=== PATIENT | male | born 1970 | race Caucasian/White ===

== ENCOUNTER 2021-06-24 09:47 | Outpatient (CLI) | payer OTHER, SELFPAY | END 2021-06-24 23:59 | disposition home or self-care (01) | LOC: LABSPEC 09:49 | PROVIDERS: Referring Provider Surgery; Visit Provider Surgery | DX: L72.3 Sebaceous cyst (principal); L08.9 Local infection of the skin and subcutaneous tissue, unspecified | CPT/HCPCS: 87070; 87075; 87077; 87205 ==

== ENCOUNTER 2021-07-31 10:53 | Day surgery (SDC) | payer OTHER, SELFPAY ==
[2021-07-31 11:18] VITALS: BP 168/87; PULSE 103; RESP 16; TEMP 37.1; O2SAT 100; BMI 27.7
[2021-07-31] MEDS: Lactated Ringers 1,000 ML 15 ML IV ×2 (11:18→14:30)
--- NOTE | 2021-07-31 12:02 | PCM.HP.BLA ---
History and Physical Date of Admission: 07/31/21 Date of Service: 06/12/21 MR#:[id number]: LAURYN HERNANDEZRep #:[id number]:[id number] Provider:Dr. Madhu Vasquez, MDAge/Sex: 50/M [facility] [place] Int[place] Vital Signs 06/12/21 07:56 Height 5 ft 10 in Weight: 193 lb BMI 27.6 BP 175/74 H Blood Pressure Location Rt brachial Position Sitting Respiration 18 Intake Visit Reasons: BACK LESION Chief Complaint: cyst on back Assistant Education Director Required: No Is patient in pain?: Yes Allergies No Known Allergies Allergy (Unverified 06/12/21 07:56) Medications clindamycin HCl 300 mg capsule 600 mg PO Q8H 10 Days #60 cap 06/12/21 [Rx Confirmed 06/12/21] PFSH Social History (Updated 06/12/21 @ 07:56 by Jacquie Guzman) Smoking Status: Never smoker alcohol intake: current HPI HPI HPI: LAURYN HERNANDEZ, is a 50 M who presents to the office today for an inflamed bump on his left upper back that is becoming quite painful. He states he believes this is a sebaceous cyst as he had a prior episode of inflammation in 2019 that responded well to empiric course of Keflex. At that time he elected to forego any additional intervention given this was the early hours of the pandemic. He admits that he and his have both attempted to squeeze the area but there has not been any drainage. He states there is an area that is smaller and inferior to this primary site it has not caused him any troubles but he knows there is a bump there as well. Patient denies any history of staph infections previously. ROS General General: No weight change, appetite, fatigue, colon cancer, breast cancer or weakness HEENT HEENT: No difficulty swallowing, eye injury, eye surgery, swollen glands or hoarseness Endo Endocrine: No thyroid disease, diabetes mellitus, thyroid cancer, Hair loss, heat intolerance or cold intolerance Skin Skin: Yes rash; No changing moles Breast Breast: No left breast lump, right breast lump, nipple discharge, breast pain, abnormal mammogram, abnormal US or breast enlargement Musc Musculoskeletal: No back problems, arthritis, rheumatoid arthritis, gout or joint pain Cardio Cardiovascular: No murmur, pacemaker, heart disease, atrial fibrillation, high blood pressure, heart attack, heart stent, palpitations, shortness of breat with exertion or chest pain Psych Psychiatric: No depression, anxiety or hearing voices Resp Respiratory: No shortness of breath, No sleep apnea, No cough, No COPD, No asthma, No emphysema and No wheezing Gastro Gastrointestinal: No abdominal pain, No nausea or vomiting, No diarrhea, No constipation, No blood in stool, No acid reflux, No hemorrhoids, No ulcers, No gallbladder problem and No black,tarry stools Jose Hematologic: No blood thinners, No blood disorders, No bleeding, No anemia and No blood clots Neuro Neurologic: No system reviewed and no additional complaints, except as documented, No as per HPI, No abnormal gait, No abnormal hearing, No abnormal movements, No abnormal speech, No behavioral changes, No burning sensations, No confusion, No convulsions, No disequilibrium, No dizziness, No localized weakness, No frequent falls, No headache(s), No lack of coordination, No loss of vision, No memory loss, No numbness, No other visual disturbances, No radicular pain, No restless legs, No sensory deficit, No syncope, No tingling, No tremor(s), No weakness and No other Exam Const General: cooperative and healthy appearing Other: Mildly uncomfortable from left upper back lesion Skin Other: Left upper back there is an approximately 6 cm area of inflammation with swelling and localized erythema. There seems to be a central pit over this area but no drainage is present. Approximately 15 cm inferior to this area there is a smaller (estimated 3 cm) lesion that is noninflamed. Both are grossly consistent with sebaceous cysts Assessment and Plan Assessment and Plan (1) Infected sebaceous cyst of skin: Status: Acute Comment: This is a 50-year-old male with his second episode of inflamed sebaceous cyst. To date there has been no drainage from this area. He has experienced resolution of the acute inflammatory period through oral antibiotics in the past. I have informed him that I would like to place him on oral antibiotics again and allow the inflammatory component to calm down before we will schedule him for excision of both his inflamed lesion and the secondary lesion that is inferior to it. Given the size on my exam today and that it seems to be in a deeper location, I have advised him that this would be more comfortably done under a local MAC sedation. Therefore we will plan to proceed with a 10-day course of clindamycin 600 mg every 8 hours x10 days. We will reassess the status of this area with a follow-up appointment on June 24. As long as the inflammation has improved, I would plan to proceed for excision of both areas under local MAC later the same week. Medications: New: clindamycin HCl 600 mg (2 x 300 mg) PO Q8H 10 days 60 caps 0RF Plan - Dr. Madhu Vasquez MD: ?10-day course of clindamycin as above ?Clinic follow-up June 24, 2021 with tentative plans to proceed to the operating room for excision of sebaceous cysts under local MAC I have re-examined the patient. There are no clinical changes since date of exam. He confirms that his incision and drainage site healed well and he was able to enjoy his vacation without bother. Denies any further issues from either the acutely inflamed site or the secondary site located more inferiorly. Expectations for the procedure and postoperative healing were reviewed in detail. Neither patient nor his spouse have any further questions. Plan to proceed with excision of sebaceous cysts from left back under local MAC today.
--- NOTE | 2021-07-31 12:30 | CYST_PTH ---
PATIENT: LAURYN HERNANDEZ LOC[place] [facility] [place][id number] AGE/SX: 51/M ROOM: RE07/31/[address]: Dr. Madhu Vasquez MD : 1970 BED: DIS: 07/31/2021 SPEC #: [id number] RECD: 07/31/21 15:47 STATUS: TASHI SUE #: [id number] ESTEPHANIE: 07/31/21 12:[address]: Madhu Vasquez DEPT: SURGICAL PATHOLOGY RECD BY: Vicki Weinstein Tissues: A - CYST B - CYST Procedures: Surgery Specimen Level III Surgery Specimen Level IV HEADER OPERATION: Left back sebaceous cyst excision x2 PRE-OP DIAGNOSIS: Infected sebaceous cyst of skin TISSUE SUBMITTED: A - Left superior sebaceous cyst, B - Left inferior sebaceous cyst MICROSCOPIC DIAGNOSIS A. Left superior back cyst, excision: Fibrous tissue with chronic inflammation and benign histiocytic proliferation. B. Left back inferior cyst, excision: Epidermal inclusion cyst. AM:stacey 08/02/2021 MICROSCOPIC DESCRIPTION Slides are reviewed. GROSS DESCRIPTION A - Received in fixative is one container labeled with the patient's name and designated left superior sebaceous cyst. The specimen consists of a piece of skin and soft tissue measuring 2 x 0.5 x 0.3 cm. The specimen is bisected and submitted entirely in one cassette. B - Received in fixative is one container labeled with the patient's name and designated left inferior sebaceous cyst. The specimen consists of a piece of donald soft tissue measuring 3.5 x 3 x 1 cm. The specimen is inked, serially sectioned and reveals a donald cyst filled with donald-white cheesy material. Pallet Repairer sections are submitted in two cassettes. / SJ:stacey 08/01/2021 TC:5 [facility]: [id number], [id number]
[2021-07-31] MEDS: Cefazolin 2 GM in 0.9% Normal Saline 100 ML IV (13:35)
[2021-07-31] MEDS: Bupivacaine 0.25% 30 ML Vial (14:49)
--- NOTE | 2021-07-31 15:16 | OP.PCM_ITS ---
Report of Operation Date of Procedure: 07/31/21 Pre-Operative Diagnosis: Sebaceous cysts of the left back Post-Operative Diagnosis: Same Surgery/Procedure Performed:: Excision of sebaceous cyst of left back x2 Description of Surgical Findings:: ? Severe inflammatory reaction in the vicinity of superior sebaceous cyst with collapsed cyst capsule ? Larger, intact cyst capsule inferiorly Surgeon: Madhu Vasquez hospital librarian: Daisy Eason Type of Anesthesia: MAC/Supplemental Anesthesiologist: Geronimo Zarate Estimated Blood Loss (mL): 15 Description of Procedure: After appropriate identification in the preoperative holding area the patient was brought to the operating room where he was positioned in the right lateral decubitus position. A local MAC was administered by anesthesia along with preoperative antibiotics. Patient was placed in SCDs for DVT prophylaxis. Pressure points were padded and his beanbag was set. Patient's left back was then prepped and draped in usual sterile fashion. The subcutaneous lesions had been preoperatively identified and incision lines were planned along the midportion of their substance. Formal timeout was conducted to confirm both patient and the procedure. Procedure was begun with instillation of local anesthetic is a local block using quarter percent Marcaine. An incision was made along the upper sebaceous cyst sharply down through the epidermis and dermis. Combination of sharp and blunt dissection was then used to locate the capsule. A Allis clamp was placed on the capsule and used to manipulate the cyst within the wound cavity. There was dense fibrotic scarring in the capsule from patient's prior I&D, but ultimately were able to separate it from the surrounding subcutaneous tissue and the muscular fascia deeply. Specimen was then passed off the field for permanent section. There was some bleeding within the wound cavity that was controlled with selective electrocautery. The wound was then packed for further hemostasis. We moved to the inferior lesion and a similar sequence was followed with an incision that was extended down through the dermis. Here the lesion proved significantly larger and was more easily from the surrounding tissues given the absence of prior inflammation. In unavoidable eruption of the cyst sac was made during dissection and there was egress of some sebaceous material. This was promptly suctioned free of the wound cavity was assessed and the cyst was able to be rolled out of the wound cavity away from the surrounding subcutaneous tissue it was completely freed from the surrounding soft tissues with use of selective electrocautery passed off the field for permanent section. Both wound cavities were irrigated and hemostasis was finalized with selective electrocautery. I then closed each wound in layers starting with a 2-0 Vicryl stitch to close the deep layer against the muscular fascia. Simple interrupted sutures were placed using 3-0 Vicryl in the deep layer of the dermis. Lastly a 4-0 Monocryl was used in a running subcuticular fashion to close the skin. Steri-Strips were applied to further approximate the skin and pressure dressings were fashioned with application of a wadded 4 x 4 gauze and tape. Patient was allowed to emerge from sedation and was transferred to PACU for ongoing recovery.
[2021-07-31 15:30] VITALS: BP 130/73; BP 168/87; PULSE 82; RESP 16; TEMP 37.1; O2SAT 95
--- NOTE | 2021-07-31 15:34 | EX.PCM.DISCH ---
Discharge Instructions Diet Discharge Diet: No restrictions Activity Discharge Activity: May Shower (Cover operative dressing while in place-okay to remove in 48 hours postop) Ice area for (Minutes): 20 Lifting Restrictions: No lifting greater than 15 pounds for 2 weeks and LUE activity Dressing / Incision Call your doctor if your incision/area has: Continuous Slow Oozing, Sudden Increased Bleeding, Increased Pain/ Swelling, Increased Redness, Foul Smelling Discharge and Swelling at the incision site Call your doctor if you observe: Fever of 101 or Higher Remove Dressing in: 2 days (Please leave Steri-Strips intact until they fall off spontaneously or are taken off at your follow-up visit) Cleanse incision/area with: Soap & Water Follow Up Care Please Follow Up With: Madhu Vasquez MD When: 7 to 10 days postop Test Results: Test results from this visit will be discussed in further detail at your follow-up appointment, if applicable. Discharge Plan Admission Primary Reason for Your Visit: Excision of sebaceous cyst x2 Attending Provider: Madhu Vasquez Instructions Patient Instructions: Surgical Biopsy Discharge Orders/Prescriptions Prescriptions: No Action NK RF: 0 Referrals / Follow Up: NATACHA PA [Other] Disposition Disposition (needs filled in before D/C Order can be placed): Home, Self Care
[2021-07-31 15:35] VITALS: BP 111/67; BP 168/87; PULSE 72; RESP 16; O2SAT 95
[2021-07-31 15:40] VITALS: BP 115/74; BP 168/87; PULSE 64; RESP 16; O2SAT 94
[2021-07-31 15:46] VITALS: BP 116/76; BP 168/87; PULSE 69; RESP 16; TEMP 37.7; O2SAT 98
[2021-07-31] MEDS: Ibuprofen 600 MG Tablet PO (16:16)
[2021-07-31 16:19] VITALS: BP 115/74; BP 168/87; PULSE 84; RESP 16; TEMP 36.7; O2SAT 100
== END 2021-07-31 16:26 | disposition home or self-care (01) ==
LOC: SDC 11:02 → AC 11:02
PROVIDERS: Referring Provider Surgery; Visit Provider Surgery
PROC: (CPT 38500; principal; 2021-07-31 12:15)
DX: L72.3 Sebaceous cyst (principal); L08.9 Local infection of the skin and subcutaneous tissue, unspecified
CPT/HCPCS: 11404; 88304; 88305; J7120; J2405